=== PATIENT | female | born 1945 | race Hispanic/Latino ===

== ENCOUNTER 2018-02-25 22:08 | Emergency (ER) | payer OTHER ==
[2018-02-25] MEDS ORDERED: ACETAMINOPHEN-CODEINE ELIXIR 5 ML UDCUP ONE (23:13)
== END 2018-02-26 00:11 | disposition home or self-care (01) ==
LOC: EDH 22:08
DX: S92.354A Nondisplaced fracture of fifth metatarsal bone, right foot, initial encounter for closed fracture (principal); S92.344A Nondisplaced fracture of fourth metatarsal bone, right foot, initial encounter for closed fracture; S00.83XA Contusion of other part of head, initial encounter; Z90.49 Acquired absence of other specified parts of digestive tract; Z90.710 Acquired absence of both cervix and uterus; W18.39XA Other fall on same level, initial encounter; Y93.01 Activity, walking, marching and hiking; Y92.89 Other specified places as the place of occurrence of the external cause; Y99.8 Other external cause status
CPT/HCPCS: 70450; 71045; 72125; 73130

== ENCOUNTER → 2018-03-05 | Outpatient (CLI) | payer OTHER | END | disposition home or self-care (01) | LOC: OIH 07:47 | PROVIDERS: ATTEND Family Medicine | DX: S62.101A Fracture of unspecified carpal bone, right wrist, initial encounter for closed fracture (principal); S62.304A Unspecified fracture of fourth metacarpal bone, right hand, initial encounter for closed fracture; S62.306A Unspecified fracture of fifth metacarpal bone, right hand, initial encounter for closed fracture; X58.XXXA Exposure to other specified factors, initial encounter; Y93.89 Activity, other specified; Y92.89 Other specified places as the place of occurrence of the external cause; Y99.8 Other external cause status | CPT/HCPCS: 73110 ==

== ENCOUNTER → 2018-04-02 | Outpatient (CLI) | payer OTHER | END | disposition home or self-care (01) | LOC: OIH 07:52 | PROVIDERS: ATTEND Family Medicine | DX: S62.101A Fracture of unspecified carpal bone, right wrist, initial encounter for closed fracture (principal); X58.XXXA Exposure to other specified factors, initial encounter; Y93.9 Activity, unspecified; Y92.9 Unspecified place or not applicable; Y99.9 Unspecified external cause status | CPT/HCPCS: 73110 ==

== ENCOUNTER → 2020-01-03 | Outpatient (CLI) | payer OTHER | END | disposition home or self-care (01) | LOC: OIH 12:33 | PROVIDERS: ATTEND Family Medicine | DX: M25.511 Pain in right shoulder (principal); I70.0 Atherosclerosis of aorta; K44.9 Diaphragmatic hernia without obstruction or gangrene; R06.02 Shortness of breath | CPT/HCPCS: 71046; 73010; 73030 ==

== ENCOUNTER → 2020-02-01 | Outpatient (CLI) | payer OTHER | END | disposition home or self-care (01) | LOC: RAH 12:08 | PROVIDERS: ATTEND Family Medicine | DX: I73.9 Peripheral vascular disease, unspecified (principal); M79.604 Pain in right leg; M79.605 Pain in left leg | CPT/HCPCS: 93970 ==

== ENCOUNTER 2020-03-09 16:58 | Emergency (ER) | payer OTHER ==
[2020-03-09] MEDS ORDERED: HYDROCODONE/ACETAMINOPHEN 10/325 MG TAB ONE (17:36)
[2020-03-09] MEDS ORDERED: KETOROLAC TROMETHAMINE 15MG/ML ONE (17:36)
[2020-03-09 17:50] LABS: BASOPHILS % (AUTO) 0.2 % (0.0-5.0); EOSINOPHILS % (AUTO) 0.2 % (0.0-8.0); HEMATOCRIT 38.8 % (36-48); LYMPHOCYTES % (AUTO) 8.6 % (21.0-51.0); MEAN CORPUSCULAR HGB CONC 34.8 g/dL (32.0-36.0); MEAN CORPUSCULAR VOLUME 86.2 fL (79-99); MONOCYTES % (AUTO) 5.1 % (3.0-13.0); NEUTROPHILS % (AUTO) 85.2 % (40.0-77.0); PLATELET COUNT (AUTO) 280 K/uL (130-400); RED CELL DISTRIBUTION WIDTH 11.9 % (11.0-15.5)
[2020-03-09 18:06] LABS: CREATININE 0.8 mg/dL (0.5-1.5); POTASSIUM 4.9 mmol/L (3.5-5.1)
[2020-03-09 18:20] LABS: APPEARANCE,URINE Clear (CLEAR); BILIRUBIN,URINE Negative (NEGATIVE); COLOR,URINE Yellow (YELLOW); GLUCOSE, URINE (UA) Negative (NEGATIVE); KETONES,URINE Negative (NEGATIVE); LEUKOCYTE ESTERASE ,URINE Negative (NEGATIVE); NITRATE,URINE Negative (NEGATIVE); OCCULT BLOOD,URINE Negative (NEGATIVE); PROTEIN,URINE Negative (NEGATIVE); UROBILINOGEN,URINE 0.2 mg/dL (0.2-1.0)
== END 2020-03-09 19:04 | disposition home or self-care (01) ==
LOC: EDH 16:58
DX: S30.0XXA Contusion of lower back and pelvis, initial encounter (principal); W01.198A Fall on same level from slipping, tripping and stumbling with subsequent striking against other object, initial encounter; Y93.89 Activity, other specified; Y92.89 Other specified places as the place of occurrence of the external cause; Y99.8 Other external cause status
CPT/HCPCS: 36415; 72131; 80048; 81003; 84484; 85025; 93005; 96374; 99285; J1885

== ENCOUNTER → 2020-03-20 | Outpatient (CLI) | payer OTHER | END | disposition home or self-care (01) | LOC: OIH 13:11 | PROVIDERS: ATTEND Family Medicine | DX: S30.0XXD Contusion of lower back and pelvis, subsequent encounter (principal); M54.5 Low back pain; M54.6 Pain in thoracic spine; I70.0 Atherosclerosis of aorta; X58.XXXD Exposure to other specified factors, subsequent encounter; Z90.49 Acquired absence of other specified parts of digestive tract | CPT/HCPCS: 71046; 71110; 72100; 72170; 72220 ==

== ENCOUNTER → 2024-05-12 | Outpatient (CLI) | payer OTHER | END | disposition home or self-care (01) | LOC: RAH 08:56 | PROVIDERS: ATTEND Family Medicine | DX: K57.30 Diverticulosis of large intestine without perforation or abscess without bleeding (principal); K44.9 Diaphragmatic hernia without obstruction or gangrene; N32.89 Other specified disorders of bladder; K57.93 Diverticulitis of intestine, part unspecified, without perforation or abscess with bleeding; M47.815 Spondylosis without myelopathy or radiculopathy, thoracolumbar region; N20.0 Calculus of kidney; R10.11 Right upper quadrant pain; Z90.49 Acquired absence of other specified parts of digestive tract | CPT/HCPCS: 74176 ==